=== PATIENT | female | born 1995 | race Caucasian/White ===

== ENCOUNTER 2016-12-14 17:11 | Outpatient (CLI) | payer OTHER ==
[~2016-12-14] VITALS: Ht 177.8 cm; Wt 80.0 kg
[2016-12-14 17:26] VITALS: BP 131/85
[2016-12-14] MEDS ORDERED: PRENTAB9 PO (17:32)
[2016-12-14] MEDS ORDERED: VALA1TAB PO (17:32)
== END 2016-12-14 21:30 | disposition home or self-care (01) ==
LOC: M LDO 17:11
PROVIDERS: ATTEND Obstetrics & Gynecology
DX: O47.1 False labor at or after 37 completed weeks of gestation (principal); Z3A.39 39 weeks gestation of pregnancy

== ENCOUNTER 2016-12-16 05:54 | Inpatient (IN) | payer OTHER ==
[2016-12-16] VITALS (39 sets, daily range): BP systolic 105–139; BP diastolic 55–92
[~2016-12-16] VITALS: Ht 177.8 cm; Wt 80.0 kg
[~2016-12-16 05:54] MED LIST: PRENTAB9 PO; VALA1TAB PO
[2016-12-16] MEDS ORDERED: VANCOMYCIN HCL 1,000 MG, VIAL MATE ADAPTER 1 EACH in D5W 250 ML IV SCH (07:00)
--- NOTE | 2016-12-16 07:10 | HPEPDOC ---
Obstetrical History & Physical General Date of Admission Dec 16, 2016 at 06:50 History of Present Illness 20 y/o at 39+6 with painful reg ctx's since MN, no LOF/VB. Pos FM. RN check is /0/BBOW. NST is Cat 1. Problem list: GBS pos but PCN all. Sens's show need Vanc for GBS prophy. HSV-oral lesions only, did NOT take the Valtrex as prescribed-denies categorically ever having any genital HSV outbreaks RH neg-rhogam in Chief Complaint: Contractions, term Care Care: Good Care Dating Final EDC: Dec 17, 2016 Past Medical History Past Obstetrical History : Past Obstetrical History: Primgravida [employer] History: No pertinent history Past Medical History Medical History denies Surgical History: Other (skin graft R toe) Family History Significant Family History: No pertinent family hx Social History Marital Status: Family situation: Spouse/partner home Psychosocial History: No pertinent psych hx * Smoker: non-smoker Alcohol: denies Drugs: denies Abuse Violence Screening Have you been hit/kicked/slapp: No Have you been sexually assault: No Imunizations Tdap status: current Influenza Status: current Allergies Coded Allergies: Penicillins (Verified Allergy, Severe, HIVES/ AIR WAY CLOSING, 12/14/16) Medications Scheduled Multivitamins/ ( 27-0.8 mg) 1 Tab Tab 1 TAB PO DAILY Miscellaneous Medications Valacyclovir HCl (Valacyclovir HCl) 1 Gm Tab 1 GM PO Physical Examination Physical Examination GENERAL: Alert and oriented times three. BREAST: . ABDOMEN: Gravid and non-tender to touch. FETUS: Is vertex (VTX) by sterile vaginal examination (SVE), fetus is vertex ( VTX) by Diogo. HEART RATE: Regular rate and rhythm. LUNGS: Clear to auscultation (CTA). EXTREMITIES: No edema. No clonus. Deep tendon reflexes (DTRs) + . Pertinent Laboratoy Data Blood Type: B- RBC Antibody Screen: Negative HIV: Negative Hepatitis B: Negative Hepatitis C: Unknown Rapid Plasma Reagin: Nonreactive Rubella: Immune Varicella: Immune Chlamydia/Gonorrhea: Negative Group B Streptococcus: Positive Quad Screen Test: Declined Cystic Fibrosis: Declined Glucose Tolerance Test: 106 Anatomy Ultrasound Ultrasound Date: Jul 27, 2016 Placenta Location: Anterior Normal Anatomy: Yes Placenta Previa: No Estimated Weight (grams): 3400 Steroid Therapy Steroid Therapy: No Vaginal Examination Dilation: 4 cm Effacement: 75% Station: -1, 0 Cervical Consistency: Medium Presentation: Cephalic presentation (by ultrasound by myself when I met the pt) Assessment Variability: Moderate Accelerations: Positive Decelerations: None Tocometer Contractions: Yes Frequency: regular Assessment/Plan Assessment Active labor. Desires an epidural. Plan Admit and orient. Land Examiner and consent. Diet: clears Group B Streptococcus (GBS) pos PCN all, will yuse Vanc (from sensitivities) Labs and intravenous (IV) per unit protocol. Counseled on Pitocin and prn need Lactated Ringers (LR) bolus for epidural Anticipate normal spontaneous delivery () C-S as appropriate. 4 mg Zofran in LR bolus for sx nausea Sessions MD SESSIONS,CAROLE Wills MD Dec 16, 2016 07:09
[2016-12-16] MEDS ORDERED: ONDANSETRON 4MG/2ML VIAL (J2405) IV ONE (07:15)
[2016-12-16] MEDS: LR 1,000 ML IV SCH ×2 (07:21→14:32)
[2016-12-16 07:57] LABS: MEAN CORPUSCULAR HEMOGLOBIN 30.2 pg (27.0-33.0); MEAN CORPUSCULAR HGB CONC 34.4 g/dl (32.0-36.5); MEAN CORPUSCULAR VOLUME 87.9 fl (80.0-96.0); RED CELL DISTRIBUTION WIDTH 13.1 % (11.5-14.5); WHITE BLOOD COUNT 6.9 K/mm3 (4.0-10.0)
[2016-12-16] MEDS ORDERED: FENTANYL 2MCG/ML ROPIVACAINE 0.2% NACL 250 ML CADD As Ordered ONE (08:01)
[2016-12-16] MEDS ORDERED: ePHEDrine SULFATE 25 MG/5 ML(5MG/ML) SYRINGE IV PRN (09:30)
[2016-12-16] MEDS ORDERED: FENTANYL/ROPIVACAINE/NACL CADD 250 ML EPIDURAL SCH (09:30)
[2016-12-16] MEDS ORDERED: ONDANSETRON 4MG/2ML VIAL (J2405) IV PRN (09:30)
[2016-12-16] MEDS ORDERED: NALOXONE INJ 0.4 MG/1 ML VIAL (J2310) IV PRN (09:30)
[2016-12-16] MEDS ORDERED: EPIDURAL COMMENT XX SCH (09:30)
[2016-12-16] MEDS ORDERED: EPIDURAL/PCA KEYS XX PRN (09:30)
[2016-12-16] MEDS ORDERED: REFRIGERATOR IV KEYS XX PRN (09:30)
[2016-12-16] MEDS ORDERED: diphenhydrAMINE INJ 50MG/ML VIAL (J1200) IV PRN (09:30)
[2016-12-16] MEDS ORDERED: LR 1,000 ML IV SCH (12:58)
[2016-12-16] MEDS ORDERED: OXYTOCIN DRIP 30 UNITS in APPROPRIATE DILUENT 1 EA IV SCH ×2 (13:00→18:34)
--- NOTE | 2016-12-16 13:01 | IPNPDOC ---
Text Note Date of Service The patient was seen on 12/16/16. NOTE Late entry for exam done ~1145 NST Cat 1, ctx's spaced out from prior. Epidural working well. Cx /90/0 to -1 /vtx well applied. Not a lot of significant change therefore will start pitocin in ~1 hr. Sessions VS,Ronnie, I+O VSRonnie I+O Laboratory Tests 12/16/16 07:03 Red Blood Count 4.06, Mean Corpuscular Volume 87.9, Mean Corpuscular Hemoglobin 30.2, Mean Corpuscular Hemoglobin Concent 34.4, Red Cell Distribution Width 13.1 Vital Signs Date Time Temp Pulse Resp B/P Pulse Ox O2 Delivery O2 Flow Rate FiO2 12/16/16 09:42 97.2 87 18 113/67 12/16/16 09:26 98 SESSIONS,CAROLE Wills MD Dec 16, 2016 13:01
--- NOTE | 2016-12-16 14:03 | IPNPDOC ---
Text Note Date of Service The patient was seen on 12/16/16. NOTE Pit at 4. NST Cat1, ctx's spaced out. Cx largely unchanged but vtx is very well applied. AROM with clr fluid. Plan to check in 2 hrs, sooner prn, if no change then will place a IUPC. Sessions VS,Ronnie, I+O VSRonnie, I+O Laboratory Tests 12/16/16 07:03 Red Blood Count 4.06, Mean Corpuscular Volume 87.9, Mean Corpuscular Hemoglobin 30.2, Mean Corpuscular Hemoglobin Concent 34.4, Red Cell Distribution Width 13.1 Vital Signs Date Time Temp Pulse Resp B/P Pulse Ox O2 Delivery O2 Flow Rate FiO2 12/16/16 13:27 97.2 57 18 106/58 12/16/16 09:26 98 SESSIONS,CAROLE Wills MD Dec 16, 2016 14:03
--- NOTE | 2016-12-16 16:40 | IPNPDOC ---
Text Note Date of Service The patient was seen on 12/16/16. NOTE NST Cat 1, pit at 4 mu/min Cx C/C/+2, ZENOBIA a/p: Start pushing Sessions VS,Ronnie, I+O VSRonnie I+O Laboratory Tests 12/16/16 07:03 Red Blood Count 4.06, Mean Corpuscular Volume 87.9, Mean Corpuscular Hemoglobin 30.2, Mean Corpuscular Hemoglobin Concent 34.4, Red Cell Distribution Width 13.1 Vital Signs Date Time Temp Pulse Resp B/P Pulse Ox O2 Delivery O2 Flow Rate FiO2 12/16/16 13:27 97.2 57 18 106/58 12/16/16 09:26 98 SESSIONS,CAROLE Wills MD Dec 16, 2016 16:39
--- NOTE | 2016-12-16 18:44 | DNPDOC ---
Delivery Note Delivery Note DATE OF DELIVERY: Dec 16, 2016 at 06:50 PREDELIVERY DIAGNOSIS: 39-6/7 weeks' gestation and labor. POST DELIVERY DIAGNOSIS: Delivered. PROCEDURE: Spontaneous vaginal delivery MANAGER BOOK: Dr. Sheikh ANESTHESIA: epidural ESTIMATED BLOOD LOSS: 200 mL. FINDINGS: 3752 gm, 8 lb 4 oz male , Score 9/9 DELIVERY SUMMARY: Pushed well with early decels that started to have a slow recovery with some isolated lates. With directed pressure and a very brief mod' d Ritgen able to del the vtx with no signif delay and also no delay of the ant/ post shoulders. Healthy male infant with good tone and cry to abd. Cord C/C by FOB. Plac intact with traction and slight massage. Trailing membranes teased out with a ring forcep. Binamual exam confirms all out. Inner left labia lac largely hemostatic except at the base, this repaired with 3 running locked 3-0 vicryl throws. Another single figure of eight on the post vag, no perineal lac. Good cosmesis/hemostasis. Uncomplicated. Received 1 dose Vanc this AM, del well after 4 hrs after first dose. Sessions MD SHEIKH,CAROLE Wills MD Dec 16, 2016 18:43
[2016-12-16] MEDS ORDERED: RHOGAM 300 MCG (1500 IU) INJ (J2790) IM SCH (18:45)
[2016-12-16] MEDS ORDERED: DIBUCAINE 1% OINTMENT 30GM TOP PRN (18:45)
[2016-12-16] MEDS ORDERED: MEASLES,MUMPS,RUBELLA VACCINE INJ (MMR-II) (90707) SC SCH (18:45)
[2016-12-16] MEDS ORDERED: METOCLOPRAMIDE INJ 10MG/2ML VIAL (J2765) IV PRN (18:45)
[2016-12-16] MEDS ORDERED: ACETAMINOPHEN TAB 650MG DOSE (2X325MG) PO PRN (18:45)
[2016-12-16] MEDS: IBUPROFEN 800 MG TAB PO PRN (19:29)
[2016-12-16] MEDS ORDERED: diphenhydrAMINE 50 MG CAP As Ordered ONE (21:06)
[2016-12-16] MEDS: DOCUSATE SODIUM 100 MG CAP PO SCH (21:09)
[2016-12-16] MEDS ORDERED: diphenhydrAMINE 50 MG CAP PO ONE (21:15)
[2016-12-17] MEDS: IBUPROFEN 800 MG TAB PO PRN (04:17)
[2016-12-17 06:00] VITALS: BP 120/74
--- NOTE | 2016-12-17 06:58 | IPNPDOC ---
Text Note Date of Service The patient was seen on 12/17/16. NOTE prog note on 12FEB at 1806 States feeling well, no complaints. Bonding, nursing well, VB slowing, no signif pain, eating, ambulatory. VSS Ut at U-2, firm LE no CCE a/p: Doing well, d/c likely tomorrow Sessions Ronnie ARMAS, I+O VSRonnie I+O Laboratory Tests 12/16/16 07:03 Red Blood Count 4.06, Mean Corpuscular Volume 87.9, Mean Corpuscular Hemoglobin 30.2, Mean Corpuscular Hemoglobin Concent 34.4, Red Cell Distribution Width 13.1 Vital Signs Date Time Temp Pulse Resp B/P Pulse Ox O2 Delivery O2 Flow Rate FiO2 12/17/16 06:00 97.8 74 16 120/74 12/16/16 09:26 98 I&O- Last 24 Hours up to 6 AM 12/17/16 05:59 Intake Total 2425 ml Output Total 3500 ml Balance -1075 ml SESSIONS,CAROLE Wills MD Dec 17, 2016 06:58
[2016-12-17] MEDS: PRENATAL VITAMIN TAB PO SCH (09:00)
[2016-12-17] MEDS: DOCUSATE SODIUM 100 MG CAP PO SCH ×2 (09:00→21:22)
[2016-12-17 18:17] VITALS: BP 133/72
[2016-12-18 06:16] VITALS: BP 114/66
[2016-12-18] MEDS: PRENATAL VITAMIN TAB PO SCH (08:53)
[2016-12-18] MEDS: DOCUSATE SODIUM 100 MG CAP PO SCH (08:54)
[2016-12-18] MEDS ORDERED: COLA100C PO (09:56)
[2016-12-18] MEDS ORDERED: ACET50TA PO (09:57)
[2016-12-18] MEDS ORDERED: IBUP-1114 PO (09:59)
== END 2016-12-18 10:41 | disposition home or self-care (01) | DRG 775 ==
LOC: M LDO 05:54 → M LDI 06:50 → M OBS 20:40
PROVIDERS: ADMIT Obstetrics & Gynecology; ATTEND Obstetrics & Gynecology
PROC: 10E0XZZ Delivery of Products of Conception, External Approach (ICD-10-PCS; principal; 2016-12-16)
PROC: 0HQ9XZZ Repair Perineum Skin, External Approach (ICD-10-PCS; 2016-12-16)
DX: O70.0 First degree perineal laceration during delivery (principal); Z37.0 Single live birth; Z3A.39 39 weeks gestation of pregnancy; O99.820 Streptococcus B carrier state complicating pregnancy